=== PATIENT | female | born 1965 | race Caucasian/White ===

== ENCOUNTER 2018-12-14 15:44 | Emergency (ER) | payer MEDICAID ==
[~2018-12-14] VITALS: Ht 175.3 cm; Wt 63.6 kg
[~2018-12-14 15:44] MED LIST: HYDR-569 PO; METF500T PO
[2018-12-14 16:10] VITALS: BP 147/86
[2018-12-14 18:06] LABS: CLARITY,URINE SLIGHTLY CLOUDY (Clear); COLOR,URINE YELLOW (Yellow); GLUCOSE, URINE NEGATIVE (Neg); KETONES,URINE NEGATIVE (Neg); LEUKOCYTE ESTERASE ,URINE NEGATIVE (Neg); NITRITES, URINE NEGATIVE (Neg); OCCULT BLOOD,URINE NEGATIVE (Neg); PROTEIN,URINE NEGATIVE (Neg)
[2018-12-14 18:07] LABS: UA COLLECTION TYPE FOLEY CATH
[2018-12-14 18:19] LABS: BACTERIA,URINE 4+ /HPF (Neg); MUCUS STRANDS NONE SEEN /LPF (Neg); RBC,URINE 0-2 /HPF (0-2); SQUAMOUS EPITHELIAL CELL,UR FEW /LPF (FEW); WBC,URINE 0-4 /HPF (0-4)
[2018-12-14] MEDS ORDERED: CLIN150C2 PO (18:49)
== END 2018-12-14 19:21 | disposition home or self-care (01) ==
LOC: ER 15:45
DX: R33.9 Retention of urine, unspecified (principal); K08.89 Other specified disorders of teeth and supporting structures; K03.81 Cracked tooth; E11.9 Type 2 diabetes mellitus without complications; Z90.710 Acquired absence of both cervix and uterus; Z98.890 Other specified postprocedural states; Z60.2 Problems related to living alone; Z79.2 Long term (current) use of antibiotics; Z79.899 Other long term (current) drug therapy
CPT/HCPCS: 51701; 81001; 87077; 87088; 87186; 99283; 99284